=== PATIENT | female | born 1995 | race Caucasian/White ===

== ENCOUNTER 2017-11-07 20:37 | Emergency (ER) | payer MEDICAID, OTHER ==
[~2017-11-07] VITALS: Ht 147.3 cm; Wt 41.8 kg
[~2017-11-07 20:37] MED LIST: NO HOME MEDS
[2017-11-07] MEDS ORDERED: TETanus/Pertussis (Acell)/Diphther VAC/PF (Tdap-Adult) 0.5ml syringe IM ONE (23:30)
[2017-11-07] MEDS ORDERED: LIDOcaine 1% 30ml preserv. free vial IJ ONE (23:30)
[2017-11-08] MEDS ORDERED: AMOX-580 PO (00:42)
[2017-11-08] MEDS ORDERED: IBUP-1984 PO (00:42)
[2017-11-08 00:44] VITALS: BP 102/53
[2017-11-08] MEDS ORDERED: amox tr/potassium clavulanate 875/125mg TAB PO ONE (00:45)
== END 2017-11-08 04:12 | disposition home or self-care (01) ==
LOC: ER 20:38
DX: S01.511A Laceration without foreign body of lip, initial encounter (principal); Y04.8XXA Assault by other bodily force, initial encounter; Y93.89 Activity, other specified; Y92.89 Other specified places as the place of occurrence of the external cause; Y99.8 Other external cause status
CPT/HCPCS: 12013; 90471; 90715; 99283; J3490

== ENCOUNTER 2017-11-09 14:17 | Emergency (ER) | payer OTHER ==
[~2017-11-09] VITALS: Ht 152.4 cm; Wt 47.0 kg
[~2017-11-09 14:17] MED LIST changes: +AMOX-580 PO; +IBUP-1984 PO
[2017-11-09 14:23] VITALS: BP 128/74
[2017-11-09] MEDS ORDERED: LIDOcaine/PRILOcaine 5gm cream TP ONE (15:15)
== END 2017-11-09 16:16 | disposition home or self-care (01) ==
LOC: ER 14:17
DX: S01.511D Laceration without foreign body of lip, subsequent encounter (principal); Z79.899 Other long term (current) drug therapy; Y04.8XXD Assault by other bodily force, subsequent encounter
CPT/HCPCS: 99282

== ENCOUNTER 2017-11-11 18:23 | Emergency (ER) | payer MEDICAID, OTHER ==
[~2017-11-11] VITALS: Ht 144.8 cm; Wt 52.3 kg
[2017-11-11 21:28] VITALS: BP 103/68
== END 2017-11-11 23:33 | disposition home or self-care (01) ==
LOC: ER 21:15
DX: S01.511D Laceration without foreign body of lip, subsequent encounter (principal); Z79.2 Long term (current) use of antibiotics; Z79.1 Long term (current) use of non-steroidal anti-inflammatories (NSAID); X58.XXXD Exposure to other specified factors, subsequent encounter
CPT/HCPCS: 99281